=== PATIENT | male | born 1980 | race Asian ===

== ENCOUNTER 2016-10-03 23:42 | Emergency (ER) | payer MEDICARE, OTHER ==
[~2016-10-03] VITALS: Ht 157.5 cm; Wt 50.0 kg
[2016-10-04 00:15] VITALS: Ht 157.5 cm; Wt 50.0 kg
[2016-10-04] MEDS ORDERED: MIRTAZAPINE 15 MG TAB PO ONE (02:30)
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
[2016-10-04 03:38] LABS: BASOPHILS % 0.4 % (0.0-2.0); EOSINOPHILS # 0.1 10^3/ul (0.0-0.5); EOSINOPHILS % 1.5 % (0.0-7.0); HEMATOCRIT 43.1 % (42.0-52.0); HEMOGLOBIN 14.6 g/dl (14.0-18.0); LYMPHOCYTES % 30.5 % (15.0-51.0); MEAN CORPUSCULAR HEMOGLOBIN 32.3 pg (29.0-33.0); MEAN CORPUSCULAR HGB CONC 33.8 g/dl (32.0-37.0); MEAN CORPUSCULAR VOLUME 95.3 fl (82.0-101.0); MEAN PLATELET VOLUME 8.9 fl (7.4-10.4); MONOCYTE # 1.2 10^3/ul (0.3-0.9); MONOCYTES % 12.3 % (0.0-11.0); NEUTROPHIL # 5.5 10^3/ul (1.6-7.5); NEUTROPHILS % 55.3 % (39.0-77.0); PLATELET COUNT 239 10^3/UL (140-440); RED BLOOD COUNT 4.52 10^6/ul (4.70-6.10); RED CELL DISTRIBUTION WIDTH 13.3 % (11.5-14.5); UNCORRECTED WBC 9.9 10^3/ul (4.8-10.8); WHITE BLOOD COUNT 9.9 10^3/ul (4.8-10.8)
[2016-10-04 03:47] LABS: CONDITION 1
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
[2016-10-04 04:13] LABS: ALBUMIN 4.3 g/dl (3.3-4.9); CHLORIDE 103 mmol/L (97-110)
[2016-10-04 04:14] LABS: POTASSIUM 4.5 mmol/L (3.5-5.1); SODIUM 149 mmol/L (135-144)
[2016-10-04 04:16] LABS: ALANINE AMINOTRANSFERASE 35 IU/L (13-69); ALBUMIN/GLOBULIN RATIO 0.86; ALKALINE PHOSPHATASE 45 IU/L (42-121); ANION GAP 20 (8-16); ASPARTATE AMINO TRANSFERASE 56 IU/L (15-46); BILIRUBIN,INDIRECT 0.2 mg/dl (0-1.1); BILIRUBIN,TOTAL 0.2 mg/dl (0.2-1.3); BLOOD UREA NITROGEN 29 mg/dl (7-20); CARBON DIOXIDE 31 mmol/L (21-31); CREATININE 0.68 mg/dl (0.61-1.24); TOTAL PROTEIN 9.3 g/dl (6.1-8.1)
[2016-10-04 04:17] LABS: CALCIUM 9.7 mg/dl (8.4-10.2); GLUCOSE 86 mg/dl (70-220)
[2016-10-04 04:42] LABS: ACETAMINOPHEN < 10.0 ug/ml (10.0-30.0); ETHANOL < 10.0 mg/dl; SALICYLATE < 1.0 mg/dl (5.0-30.0)
[2016-10-04 05:28] LABS: ADD UMIC NO; URINE BILIRUBIN (Dip) NEGATIVE (NEGATIVE); URINE BLOOD (Dip) NEGATIVE (NEGATIVE); URINE COLOR LT. YELLOW (YELLOW); URINE KETONES (Dip) 15 (NEGATIVE); URINE LEUKOCYTE ESTERASE (Dip) NEGATIVE (NEGATIVE); URINE NITRITE (Dip) NEGATIVE (NEGATIVE); URINE TOTAL PROTEIN (Dip) NEGATIVE (NEGATIVE); URINE UROBILINOGEN (Dip) 0.2 E.U./dL (0.1-1.0)
[2016-10-04 05:55] LABS: BARBITURATES Negative (NEGATIVE); BENZODIAZEPINES Negative (NEGATIVE); CANNABINOIDS Negative (NEGATIVE); COCAINE Negative (NEGATIVE); OPIATES Negative (NEGATIVE)
[2016-10-04] MEDS ORDERED: ARIP10TA13 PO (07:21)
[2016-10-04] MEDS ORDERED: DIVA500T7 PO (07:22)
--- NOTE | 2016-10-04 20:32 | QN ---
Documentation Comment Observation Note: Time: 4 hours Family Hx: Negative for diabetes Evaluation: Multiple exams showed improving symptoms and no evidence of clinical decompensation. EUGENIO SEXTON MD Oct 04, 2016 20:32
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
[2016-10-06] MEDS ORDERED: ARIPIPRAZOLE 10 MG TAB PO ONE (08:00)
[2016-10-06] MEDS ORDERED: DIVALPROEX (EC) 500 MG TAB PO ONE (08:00)
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
[2016-10-06 22:52] VITALS: RESP 18; TEMP 98
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
[2016-10-07 03:47] VITALS: BP 150/123; PULSE 85
== END 2016-10-07 10:17 | disposition home or self-care (01) ==
LOC: E/R 23:42
DX: F29 Unspecified psychosis not due to a substance or known physiological condition (principal); R40.2222 Coma scale, best verbal response, incomprehensible words, at arrival to emergency department; R40.2362 Coma scale, best motor response, obeys commands, at arrival to emergency department; R40.2142 Coma scale, eyes open, spontaneous, at arrival to emergency department
CPT/HCPCS: 80053; 80306; 80307; 81003; 85025; 99283; J0400

== ENCOUNTER 2018-11-14 04:57 | Emergency (ER) | payer MEDICARE, OTHER ==
[~2018-11-14] VITALS: Ht 165.1 cm; Wt 45.5 kg
[~2018-11-14 04:57] MED LIST: ARIP10TA12 PO; DIVA-75 PO
[2018-11-14 05:10] VITALS: Ht 165.1 cm; Wt 45.5 kg
--- NOTE | 2018-11-14 05:48 | ERD ---
ER Documentation Chief Complaint Chief Complaint BIB RA102,depression,denies SI/HI,hx MS MADDEN Is a 38-year-old male comes in with points of depression. He denies suicidal homicidal ideation, however he says he is severely depressed. Patient has history of MS. ROS All systems reviewed and are negative except as per history of present illness. Medications Home Meds Reported Medications Divalproex Sodium* (Depakote ER*) 500 Mg Tabsr, 500 MG PO BID, #60 TAB.SA 10/04/16 Aripiprazole* (Abilify*) 10 Mg Tablet, 10 MG PO DAILY, #30 TAB 10/04/16 Allergies Allergies: Coded Allergies: No Known Allergy (Unverified , 10/04/16) PMhx/Soc Medical and Surgical Hx: pt denies Surgical Hx Hx Neurological Disorder: Yes (cerebral palsy) Hx Alcohol Use: No Hx Substance Use: No Hx Tobacco Use: No Smoking Status: Never smoker Physical Exam Vitals Vital Signs Date Temp Pulse Resp B/P (MAP) Pulse Ox O2 O2 Flow FiO2 Time Delivery Rate 11/14/18 98.8 118 18 126/83 97 05:10 (97) Physical Exam Const: No acute distress Head: Atraumatic Eyes: Normal Conjunctiva ENT: Normal External Ears, Nose and Mouth. Neck: Full range of motion. No meningismus. Resp: Clear to auscultation bilaterally Cardio: Regular rate and rhythm, no murmurs Abd: Soft, non tender, non distended. Normal bowel sounds Skin: No petechiae or rashes Back: No midline or flank tenderness Ext: No cyanosis, or edema Neur: Awake and alert Psych: Normal Mood and Affect Results 24 hrs Laboratory Tests Test 11/14/18 05:28 11/14/18 05:31 Urine Color YELLOW Urine Clarity CLEAR Urine pH 5.0 Urine Specific [place] 1.025 Urine Ketones 1+ mg/dL Urine Nitrite NEGATIVE mg/dL Urine Bilirubin NEGATIVE mg/dL Urine Urobilinogen NEGATIVE mg/dL Urine Leukocyte Esterase NEGATIVE [place]/ul Urine Hemoglobin NEGATIVE mg/dL Urine Glucose 3+ mg/dL Urine Total Protein NEGATIVE mg/dl White Blood Count Pending Red Blood Count Pending Hemoglobin Pending Hematocrit Pending Mean Corpuscular Volume Pending Mean Corpuscular Hemoglobin Pending Mean Corpuscular Hemoglobin Concent Pending Red Cell Distribution Width Pending Platelet Count Pending Mean Platelet Volume Pending Procedures/MDM Emergency room course patient seen and evaluated triage was placed in bed from evaluation. Had blood work done. Medical decision making: Patient's behavioral symptoms have stabilized while in the department. Patient is medically cleared and appropriate for psychiatric evaluation and work up. No e/o neurologic, toxic, infectious, or metabolic cause. Currently pending telemetry psychiatry Departure Diagnosis: Primary Impression: Depression Depression Type: unspecified Qualified Codes: F32.9 - Major depressive disorder, single episode, unspecified Condition: RONA Camacho Nov 14, 2018 05:48
--- NOTE | 2018-11-14 06:19 | PSY ---
Date/Time of Note Date/Time of Note DATE: 11/14/18 TIME: 06:18 Psychiatric Subjective Eval Consent Pt consented to telemedicine: Yes Subjective Evaluation Patient location: emergency Chief Complaint: BIB RA102,depression,denies SI/HI,hx MS Medical history Problems Medical Problems: (1) Depression Status: Acute (2) Psychiatric illness Status: Acute Allergies: Coded Allergies: No Known Allergy (Unverified , 10/04/16) Psychiatric Objective Eval Mental Status Examination: Laboratory Results Laboratory Tests Test 11/14/18 05:28 11/14/18 05:31 Urine Color YELLOW Urine Clarity CLEAR Urine pH 5.0 Urine Specific [place] 1.025 Urine Ketones 1+ mg/dL Urine Nitrite NEGATIVE mg/dL Urine Bilirubin NEGATIVE mg/dL Urine Urobilinogen NEGATIVE mg/dL Urine Leukocyte Esterase NEGATIVE [place]/ul Urine Hemoglobin NEGATIVE mg/dL Urine Glucose 3+ mg/dL Urine Total Protein NEGATIVE mg/dl Sodium Level 144 mmol/L Potassium Level 4.5 mmol/L Chloride Level 104 mmol/L Carbon Dioxide Level 31 mmol/L Anion Gap 9 Blood Urea Nitrogen 27 mg/dl Creatinine 0.60 mg/dl Est Glomerular Filtrat Rate mL/min > 60 mL/min Glucose Level 98 mg/dl Calcium Level 9.7 mg/dl Total Bilirubin 0.5 mg/dl Direct Bilirubin 0.00 mg/dl Indirect Bilirubin 0.5 mg/dl Aspartate Amino Transf (AST/SGOT) 37 IU/L Alanine Aminotransferase (ALT/SGPT) 32 IU/L Alkaline Phosphatase 50 IU/L Total Protein 8.6 g/dl Albumin 4.4 g/dl Globulin 4.20 g/dl Albumin/Globulin Ratio 1.04 Salicylates Level < 1.0 mg/dl Urine Opiates Screen Negative Acetaminophen Level < 10.0 ug/ml Urine Barbiturates Negative Urine Amphetamines Screen Negative Urine Benzodiazepines Screen Negative Urine Cocaine Screen Negative Urine Cannabinoids Negative Ethyl Alcohol Level < 10.0 mg/dl Assessment and Plan Recommendation/Plan Discharge Disposition: Community (Long Term) Legal Status: Voluntary Assessment Additional comments: IDENTIFYING INFORMATION: 38 year old Male patient who is currently located at the hospital and for whom psychiatric consultation was requested. SOURCES OF INFORMATION: The patient who appears to be somewhat reliable and the medical records; the nursing staff. Assisted living facility, was called at [phone] x3 at 6:07 am and 6:13 am. there was no response. CHIEF COMPLAINT: "depressed". HISTORY OF PRESENT ILLNESS: The patient was interviewed via telemedicine in the presence of and under the supervision of nursing staff of the hospital. The consent to conducting this interview via telemedicine was obtained by the nursing staff at the hospital. FOX Duran reports that the patient with cerebral palsy presented with depressed mood. Interview was conducted with Yes or No questions. The patient reports having been depressed mood at times, insomnia. The patient denies having SI, HI, anhedonia, AH, VH, delusions, hopelessness, helplessness, excessive guilt. The patient denies using alcohol heavily or regularly. The patient denies using any other substances. In terms of past psychiatric history, the patient reports having a history of past psychiatric hospitalizations. The patient reports having a history of past suicide attempt. Has a psychiatrist but is unable to say the name in a comprehensible manner. PAST MEDICAL HISTORY: cerebral palsy, MS. CURRENT MEDICATIONS: abilify 10 mg po qday, depakote 500 mg po bid. ALLERGIES TO MEDICATIONS: NKDA LABORATORY TESTS: pending. SOCIAL HISTORY: single, no kids, on disability, no access to firearms. REVIEW OF SYSTEMS: Constitutional (e.g., fever, weight loss): negative; Eyes, Ears, Nose, Mouth, Throat: negative; Cardiovascular: negative; Respiratory: negative; Gastrointestinal: negative; Genitourinary: negative; Musculoskeletal: negative; Integumentary (skin and/or breast): negative; Neurological: negative; Psychiatric: as per HPI; Endocrine: negative; Hematologic/Lymphatic: negative; Allergic/Immunologic: negative. MENTAL STATUS EXAMINATION: General Appearance and Behavior: Calm, cooperative with the interview, pleasant with the current interviewer, makes fair eye contact, fairly groomed, the patient's upper extremities appear contracted. Speech: slow rate, low volume, decreased amount, very difficult to understand, mostly communicates by saying yes or no. Flow of thought: sequential, logical, goal-directed, Content of thought: no auditory hallucinations, no visual hallucinations, no delusions, negative for suicidal ideation; no homicidal ideation, Mood: "depressed", Affect: dysthymic, somewhat reactive, Attention: normal based on the interview, Insight: fair, Judgment: fair, Memory: normal based on the interview, Sensorium: alert and oriented to person, unable to assess further. ASSESSMENT: The patient's presentation and history are consistent with the diagnosis of unspecified mood disorder. The patient presents with depressive symptoms in the context of medication compliance, psychosocial stressors. No evidence of psychosis, yvette, hypomania on exam. PLAN: - Medication management: Would increase Abilify to 15 mg at bedtime. Continue Depakote at the current dose pending the results of the Depakote level. if Depakote level results become available, please call back the current provider for recommendations regarding the dose of Depakote. - Labs: Please check CBC, CMP, Alcohol level, UDS, depakote level. - Psychotherapy: Provided supportive psychotherapy and psychoeducation. - Disposition: If the patient's alcohol level is above the legal limit, then please reconsult psychiatry to determine disposition once the patient's alcohol level is below the legal limit. If the patient's alcohol level comes back below the legal limit, then the patient is appropriate for the outpatient level of care at this time from a psychiatric perspective. The patient is not an imminent danger to self or others. The patient is motivated for outpatient treatment. The patient agrees to be compliant with outpatient follow-up appointments and pharmacotherapy as ind icated. Would recommend that the patient follows up with a psychiatrist. Resources for outpatient follow-up will be provided by the hospital staff. The patient's risk for completed suicide is moderate in comparison to the general population. Risk factors include marital status, gender, mood disorder, history of past suicide attempts, chronic medical problems. Protective factors include absence of schizophrenia, bipolar disorder, anxiety disorder, personality disorder, no access to firearms,. It is unclear what level of social support the patient has from his family, but appears to be residing in an assisted living facility. The patient's risk for completed suicide cannot be modified more effectively with inpatient admission at this time. The patient is not an imminent danger to self or others at this time and does not meet the legal criteria for involuntary admission. Risks, benefits, alternatives were discussed and the patient provided informed consent to proceed with the above plan. Discussed about the above plan with Dr. Angela. TRISHA LARKIN MD Nov 14, 2018 06:19
[2018-11-14] MEDS ORDERED: BACL10TA PO (07:27)
[2018-11-14] MEDS ORDERED: BENZ0.5T41 PO (07:27)
[2018-11-14] MEDS ORDERED: DIVA-16 PO (07:29)
[2018-11-14] MEDS ORDERED: BLVX50T PO (07:30)
[2018-11-14] MEDS ORDERED: LORA10TA3 PO (07:31)
[2018-11-14] MEDS ORDERED: CARI3CAP PO (07:31)
[2018-11-14] MEDS ORDERED: CLON0.5T14 PO (07:31)
[2018-11-14] MEDS ORDERED: OLAN5TAB5 PO (07:32)
[2018-11-14] MEDS ORDERED: SOD CHLORIDE 0.9% 1,000 ML IV ONE (08:00)
[2018-11-14] MEDS ORDERED: LORAZEPAM 2 MG INJ IV ONE (08:00)
[2018-11-14] MEDS ORDERED: ARIP15TA3 PO (10:19)
[2018-11-14 13:37] VITALS: BP 94/61; PULSE 93; RESP 16
== END 2018-11-14 14:02 | disposition home or self-care (01) ==
LOC: E/R 04:57
DX: F32.9 Major depressive disorder, single episode, unspecified (principal)
CPT/HCPCS: 36415; 80053; 80164; 80307; 81003; 85025; 96374; 99284; J2060; J7030